=== PATIENT | female | born 1990 | race Two or more races ===

== ENCOUNTER 2024-07-16 17:47 | Emergency (ER) | payer OTHER ==
[2024-07-16 17:53] VITALS: BP 124/66; PULSE 88; RESP 17; TEMP 98.4; BMI 27.1
[2024-07-16] MEDS ORDERED: KETOROLAC TROMETHAMINE 30 MG/1 ML VIAL ONE (18:31)
[2024-07-16] MEDS: KETOROLAC TROMETHAMINE 30 MG/1 ML VIAL IM ONE (18:39)
== END 2024-07-16 18:46 | disposition home or self-care (01) ==
LOC: JERFT 17:47
PROC: 3E0233Z Introduction of Anti-inflammatory into Muscle, Percutaneous Approach (ICD-10-PCS; principal; 2024-07-16)
DX: M25.561 Pain in right knee (principal); M25.562 Pain in left knee
CPT/HCPCS: 99284-25